=== PATIENT | male | born 1985 ===

== ENCOUNTER 2024-09-10 12:28 | Day surgery (SDC) | payer BC ==
[2024-09-08 15:03] VITALS: BMI 32.5
[~2024-09-10 12:28] MED LIST: LACTATED RINGERS 1,000 ML IV SCH; LIDOCAINE 1% (10MG/ML) FOR IV START INTRADERMA PRN
[2024-09-10] MEDS: IV FLUID CONTINUATION 1,000 ML IV ONE (12:50)
[2024-09-10 12:57] VITALS: TEMP 97
[2024-09-10] MEDS ORDERED: PROPOFOL 10 MG/ML 20 ML VIAL IV ONE (13:33)
--- NOTE | 2024-09-10 13:37 | P.GSHP ---
History of Present Illness H&P Date: 09/10/24 Chief Complaint: Family history of colon cancer 38-year-old male here for colonoscopy. Family history of colon cancer in his grandparent and uncle. Apparently has a history of hemorrhoids. No symptoms currently. No prior colonoscopy. Past Medical History Past Medical History: Skin Disorder, Sleep Apnea/CPAP/BIPAP Additional Past Medical History / Comment(s): Patient states has been told he has Asthma and told no he doesn't, so not sure if he does or not. Environmental allergies, MS, Migraines, Eczema/hives, Sleep Apnea with CPAP use. History of Any Multi-Drug Resistant Organisms: None Reported Additional Past Surgical History / Comment(s): [place] teeth extracted. Past Anesthesia/Blood Transfusion Reactions: No Reported Reaction, Motion Sickness Additional Past Anesthesia/Blood Transfusion Reaction / Comment(s): Uses Scopolamine patches PRN for motion sickness. Additional Psychological History / Comment(s): Patient states probably has ADD - has not been diagnosed. Smoking Status: Never smoker Past Alcohol Use History: Occasional Past Drug Use History: None Reported - Past Family History Mother Family Medical History: No Reported History Medications and Allergies Home Medications Medication Instructions Recorded Confirmed Type Co Q-10 (Unknown Dose) 1 tab PO HS 09/08/24 09/10/24 History Famotidine [Pepcid AC] 10 mg PO HS 09/08/24 09/10/24 History Fexofenadine/Pseudoephedrine 1 tab PO HS 09/08/24 09/10/24 History [Ashly-D 24 Hour Tablet] Ibuprofen [Advil] 600 mg PO DIRECTED PRN 09/08/24 09/10/24 History Magnesium (Unknown Dose) 1 tab PO HS 09/08/24 09/10/24 History Potassium (Unknown Dose) 1 tab PO 09/08/24 09/10/24 History Allergies Allergy/AdvReac Type Severity Reaction Status Date / Time shellfish derived [Shellfish] Allergy Unknown Verified 09/10/24 12:49 Environmental Allergies Allergy Rash/Hives Uncoded 09/10/24 12:49 Surgical - Exam Vital Signs Temp Pulse Resp BP Pulse Ox 97 F L 76 16 130/90 98 09/10/24 12:50 09/10/24 12:50 09/10/24 12:50 09/10/24 12:50 09/10/24 12:50 Physical exam: General: Well-developed, well-nourished HEENT: Normocephalic, sclerae nonicteric Abdomen: Nontender, nondistended Extremities: No edema Neuro: Alert and oriented Assessment and Plan (1) Family history of colon cancer Narrative/Plan: Will proceed with colonoscopy at this time. Current Visit: Yes Status: Acute Code(s): Z80.0 - FAMILY HISTORY OF MALIGNANT NEOPLASM OF DIGESTIVE ORGANS SNOMED Code(s): 092356468
--- NOTE | 2024-09-10 13:49 | P.PCN ---
Date of Procedure: 09/10/24 Procedure(s) Performed: PREOPERATIVE DIAGNOSIS: Colon cancer screening with family history of colon cancer POSTOPERATIVE DIAGNOSIS: Normal exam PROCEDURE: Colonoscopy ANESTHESIA: MAC SURGEON: Alejandro Blandon M.D. SPECIMENS: None ENDOSCOPIC PROCEDURE: The patient was placed on the endoscopy table in the left decubitus position. The Olympus colonoscope was inserted into the anus and passed under direct visualization to the base of the cecum. The appendiceal orifice was visualized. From that point the scope was slowly withdrawn inspecting all surfaces carefully. There were no neoplastic inflammatory or polypoid lesions throughout the cecum, ascending, transverse, descending, sigmoid and rectum. There was no visible diverticulosis noted. Digital rectal examination was normal. The patient was taken to the recovery room in stable condition per anesthesia guidelines. RECOMMENDATIONS: Resume diet. Consider repeat colonoscopy 5 to 10 years.
[2024-09-10 14:18] VITALS: BP 134/86; PULSE 75; RESP 16
== END 2024-09-10 14:39 | disposition home or self-care (01) ==
LOC: ORWHC2ENDO 12:28
PROVIDERS: ATTEND Surgery
DX: Z12.11 Encounter for screening for malignant neoplasm of colon (principal); G47.33 Obstructive sleep apnea (adult) (pediatric); G35 Multiple sclerosis; Z79.899 Other long term (current) drug therapy; Z87.19 Personal history of other diseases of the digestive system; Z80.0 Family history of malignant neoplasm of digestive organs; Z91.013 Allergy to seafood
CPT/HCPCS: 45378; J2704